=== PATIENT | male | born 2000 | race Caucasian/White ===

== ENCOUNTER 2018-11-13 10:50 | Emergency (ER) | payer SELFPAY ==
--- NOTE | 2018-11-13 11:38 | ED ---
Skin Complaint - HPI Summary HPI Summary: Patient is a 18-year-old male presenting to the ED with the concern for poison lyssa/oak. Patient states he has had the symptoms approximate 2 weeks ago and it improved with calamine lotion. He then developed more lesions (one to his neck and some to his L forearm) after being outside all day in the brush. He states 3 of the coworkers of his also currently have poison lyssa. He has had the symptoms for and states this is similar. He is endorsing pruritus. - History of Current Complaint Chief Complaint: EDRashSkinAbscess Time Seen by Provider: 11/13/18 11:09 Stated Complaint: POSS POISEN LYSSA PER PT Hx Obtained From: Patient Onset/Duration: Started Hours Ago Skin Exposure Onset/Duration: Hours Ago Timing: Constant Onset Severity: Moderate Current Severity: Moderate Pain Intensity: 5 Pain Scale Used: 0-10 Numeric Skin Location: Other: - left forearm and L side of the neck Aggravating Symptom(s): Nothing Alleviating Symptom(s): Nothing Associated Signs & Symptoms: Negative - Allergy/Home Medications Allergies/Adverse Reactions: Allergies Allergy/AdvReac Type Severity Reaction Status Date / Time No Known Allergies Allergy Verified 11/13/18 10:55 PMH/Surg Hx/FS Hx/Imm Hx Previously Healthy: Yes Respiratory History: Reports: Hx Asthma - Immunization History Hx Pertussis Vaccination: No Immunizations Up to Date: Yes Infectious Disease History: No Infectious Disease History: Denies: Hx Clostridium Difficile, Hx Hepatitis, Hx Human Immunodeficiency Virus (HIV), Hx of Known/Suspected MRSA, Hx Shingles, Hx Tuberculosis, Hx Known/ Suspected VRE, Hx Known/Suspected VRSA, History Other Infectious Disease, Traveled Outside the in Last 30 Days - Social History Occupation: Employed Full-time Lives: With Family Alcohol Use: None Hx Substance Use: No Substance Use Type: Reports: None Smoking Status (MU): Never Smoked Tobacco Have You Smoked in the Last Year: No Review of Systems Negative: Fever, Chills, Fatigue, Skin Diaphoresis Negative: Epistaxis, Dental Pain Negative: Chest Pain Negative: Shortness Of Breath, Cough Negative: Arthralgia, Myalgia Positive: Other - left forearm and L side of the neck raised pruritic lesions appearing to be poison oak Neurological: Negative All Other Systems Reviewed And Are Negative: Yes Physical Exam Triage Information Reviewed: Yes Vital Signs On Initial Exam: Initial Vitals Temp Pulse Resp BP Pulse Ox 96.2 F 72 15 164/117 98 11/13/18 10:51 11/13/18 10:51 11/13/18 10:51 11/13/18 10:51 11/13/18 10:51 Vital Signs Reviewed: Yes Appearance: Positive: Well-Appearing, Well-Nourished Skin: Positive: Skin Color Reflects Adequate Perfusion Head/Face: Positive: Normal Head/Face Inspection Eyes: Positive: EOMI, JACKY, Conjunctiva Clear Neck: Positive: Supple, No Lymphadenopathy Respiratory/Lung Sounds: Positive: Clear to Auscultation, Breath Sounds Present Cardiovascular: Positive: RRR, Pulses are Symmetrical in both Upper and Lower Extremities Musculoskeletal: Positive: Normal, Strength/ROM Intact Neurological: Positive: Sensory/Motor Intact, Alert, Oriented to Person Place, Time, Speech Normal Psychiatric: Positive: Affect/Mood Appropriate AVPU Assessment: Alert Diagnostics - Vital Signs Vital Signs Temp Pulse Resp BP Pulse Ox 11/13/18 10:56 70 14 146/89 97 11/13/18 10:51 96.2 F 72 15 164/117 98 - Laboratory Lab Statement: Any lab studies that have been ordered have been reviewed, and results considered in the medical decision making process. Course/Dx - Course Course Of Treatment: Scores treatment, the patient is evaluated for poison lyssa/ oak. Patient has 2 small lesions left-sided neck as well as to the bilateral forearms. He has been putting calamine lotion to the area with minimal relief. He continues to endorse pruritus. Denies any fevers, sweats, chills. He is given triamcinolone cream as well as prednisone. He will continue to wash the area and also use calamine lotion in addition. - Diagnoses Provider Diagnoses: Poison lyssa Discharge - Sign-Out/Discharge Documenting (check all that apply): Patient Departure Patient Received Moderate/Deep Sedation with Procedure: No - Discharge Plan Condition: Stable Disposition: HOME Prescriptions: predniSONE TAB* [Deltasone TAB*] 50 mg PO DAILY #5 tab MDD 1 Triamcinolone 0.5% CREAM(NF) [Triamcinolone 0.5% CREAM*] 1 applic TOPICAL BID # 1 tube Patient Education Materials: Poison Lyssa (ED), Cold Compress or Soak (ED) Referrals: Casandra Torres MD [Primary Care Provider] - Additional Instructions: Triamcinolone twice daily over affected areas of concern Continue with calamine lotion twice daily as well Use these on opposite schedule Prednisone once daily in the morning 5 days, you may start this today - Billing Disposition and Condition Condition: STABLE Disposition: Home
[2018-11-13 11:46] VITALS: BP 157/103
== END 2018-11-13 11:44 | disposition home or self-care (01) ==
LOC: ED 10:50
DX: L23.7 Allergic contact dermatitis due to plants, except food (principal)
CPT/HCPCS: 99282